=== PATIENT | female | born 1970 | race African-American/Black ===

== ENCOUNTER 2024-03-04 21:59 | Emergency (ER) | payer BC ==
[2024-03-04] MEDS: Diphtheria,Pertussis(Acell),Tetanus Vaccine 0.5 ML Syringe IM ONE (22:49)
[2024-03-04] MEDS: Bacitracin Oint 15 GM Tube TOP ONE (22:50)
== END 2024-03-04 23:00 | disposition home or self-care (01) ==
LOC: JD.ED 21:59
DX: S61.211A Laceration without foreign body of left index finger without damage to nail, initial encounter (principal); Z23 Encounter for immunization; W26.0XXA Contact with knife, initial encounter
CPT/HCPCS: 90471; 90715; 99282; A9270